=== PATIENT | male | born 1990 | race Caucasian/White ===

== ENCOUNTER 2019-08-09 07:54 | Inpatient (IN) | payer BC, SELFPAY ==
[2019-08-09] MEDS ORDERED: AZITHROMYCIN IVPB 500 MG in DEXTROSE 5%-WATER - 250 ML IVPB ONE (09:32)
[2019-08-09] MEDS ORDERED: SODIUM CHLORIDE 1,000 ML IV STA (09:32)
[2019-08-09] MEDS ORDERED: CEFTRIAXONE 1,000 MG in DEXTROSE 5%-WATER - 50 ML IVPB ONE (09:32)
[2019-08-09] MEDS ORDERED: cefTRIAXone SODIUM 1 GM VIAL ONE (10:01)
[2019-08-09] MEDS ORDERED: AZITHROMYCIN 500 MG VIAL IVPB ONE (10:01)
[2019-08-09 10:38] LABS: BASO % 0.1 % (0-2.0); EOS % 0.1 % (0-4.5); HEMATOCRIT 47.2 % (35.4-49); HEMOGLOBIN 15.6 GM/dl (11.7-16.9); LYMPH % 17.8 % (8-40); MCH 27.7 pg (25.7-33.7); MCHC 33.1 g/dl (32.0-35.9); MEAN CELL VOLUME 83.6 fl (80-96); MEAN PLT VOLUME 8.5 fl (7.5-11.1); MONO % 11.4 % (3.8-10.2); NEUT % 70.6 % (42.8-82.8); PLATELET COUNT 218 K/MM3 (134-434); RBC 5.64 M/mm3 (4.00-5.60); RDW 12.8 % (11.9-15.9); WHITE BLOOD COUNT 3.9 K/mm3 (4.0-10.8)
[2019-08-09 10:51] LABS: ALBUMIN 3.8 g/dl (3.4-5.0); BILIRUBIN,TOTAL 1.1 mg/dl (0.2-1); CALCIUM 8.2 mg/dl (8.5-10); POTASSIUM 3.6 mmol/L (3.5-5.1); TOT PROT 7.5 g/dl (6.4-8.2)
[2019-08-09] MEDS ORDERED: ATOMOXETINE HCL 40 MG PO SCH (12:00)
[2019-08-09 12:26] VITALS: BMI 33.4
[2019-08-09 13:05] LABS: ALBUMIN 3.8 g/dl (3.4-5.0); BILIRUBIN,DIRECT 0.2 mg/dL (0.0-0.2); BILIRUBIN,TOTAL 1.2 mg/dl (0.2-1); TOT PROT 7.6 g/dl (6.4-8.2)
[2019-08-09] MEDS: VENLAFAXINE HCL 37.5 MG E.R. CAPSULE PO SCH ×2 (13:57→20:40)
[2019-08-09] MEDS ORDERED: ACETAMINOPHEN 325 MG TABLET (FP) PO PRN (20:01)
[2019-08-09] MEDS: SODIUM CHLORIDE 1,000 ML IV SCH (20:40)
[2019-08-09] MEDS: BENZOCAINE/MENTH/CETYLPYRD CL 1 EACH LOZENGE MM PRN (22:00)
[2019-08-09] MEDS ORDERED: ACETAMINOPHEN 1000 MG/100 ML VIAL (NON FORMULARY) IVPB ONE (22:55)
[2019-08-10 06:49] LABS: BASO % 0.5 % (0-2.0); EOS % 0.7 % (0-4.5); HEMATOCRIT 38.5 % (35.4-49); HEMOGLOBIN 13.5 GM/dL (11.7-16.9); LYMPH % 19.1 % (8-40); MCH 28.6 pg (25.7-33.7); MCHC 35.1 g/dl (32.0-35.9); MEAN CELL VOLUME 81.4 fl (80-96); MEAN PLT VOLUME 8.8 fl (7.5-11.1); MONO % 6.9 % (3.8-10.2); NEUT % 72.8 % (42.8-82.8); PLATELET COUNT 194 K/MM3 (134-434); RBC 4.73 M/mm3 (4.00-5.60); RDW 14.5 % (11.9-15.9); WHITE BLOOD COUNT 5.2 K/mm3 (4.0-10.0)
[2019-08-10 07:01] LABS: INR 1.23 (0.83-1.09)
[2019-08-10 07:15] LABS: PROTHROMBIN TIME (PATIENT) 14.5 SEC (9.7-13.0)
[2019-08-10 07:31] LABS: BLOOD UREA NITROGEN 8.6 mg/dL (7-18); CHLORIDE 101 mmol/L (98-107); CREATININE 0.9 mg/dL (0.55-1.3); GLUCOSE,RANDOM 80 mg/dL (74-106); POTASSIUM 3.6 mmol/L (3.5-5.1); SODIUM 137 mmol/L (136-145)
[2019-08-10 07:32] LABS: CO2 30 mmol/L (21-32); MAGNESIUM 2.1 mg/dL (1.8-2.4); PHOSPHOROUS 3.2 mg/dL (2.5-4.9)
[2019-08-10 08:22] LABS: ALBUMIN 2.7 g/dl (3.4-5.0); ALK PHOS 55 U/L (45-117); BILIRUBIN,TOTAL 0.4 mg/dL (0.2-1); SGOT/AST 81 U/L (15-37); SGPT/ALT 72 U/L (13-61); TOT PROT 5.8 g/dl (6.4-8.2)
[2019-08-10] MEDS ORDERED: cefTRIAXone SODIUM 1 GM VIAL ONE (08:48)
[2019-08-10] MEDS ORDERED: PT OWN MED DRAWER 7, Y5N ONE (08:48)
[2019-08-10] MEDS ORDERED: DEXTROSE 5%-WATER - 50 ML IVPB ONE (08:49)
[2019-08-10] MEDS: VENLAFAXINE HCL 37.5 MG E.R. CAPSULE PO SCH ×2 (09:53→11:10)
[2019-08-10] MEDS: CEFTRIAXONE 1 GM in DEXTROSE 5%-WATER - 50 ML IVPB SCH (09:54)
[2019-08-10] MEDS: AZITHROMYCIN IVPB 250 MG in DEXTROSE 5%-WATER - 250 ML IVPB SCH (09:55)
[2019-08-10] MEDS: SODIUM CHLORIDE 1,000 ML IV SCH ×2 (09:55→15:11)
[2019-08-10] MEDS: ENOXAPARIN NA (PORCINE) 40 MG/0.4 ML DISP.SYRIN SQ SCH (09:55)
[2019-08-10] MEDS: ACETAMINOPHEN 1000 MG/100 ML VIAL (NON FORMULARY) IVPB PRN (20:00)
[2019-08-10] MEDS: BENZOCAINE/MENTH/CETYLPYRD CL 1 EACH LOZENGE MM PRN (21:41)
[2019-08-10] MEDS: guaiFENesin 200 MG/10 ML 10 ML UNIT-DOSE CUPS PO PRN (22:30)
[2019-08-11] MEDS: ACETAMINOPHEN 1000 MG/100 ML VIAL (NON FORMULARY) IVPB PRN ×2 (05:19→16:57)
[2019-08-11 06:34] LABS: BASO % 0.5 % (0-2.0); EOS % 0.2 % (0-4.5); HEMATOCRIT 35.5 % (35.4-49); HEMOGLOBIN 12.5 GM/dL (11.7-16.9); LYMPH % 11.7 % (8-40); MCH 28.5 pg (25.7-33.7); MCHC 35.3 g/dl (32.0-35.9); MEAN CELL VOLUME 80.6 fl (80-96); MEAN PLT VOLUME 8.4 fl (7.5-11.1); MONO % 4.7 % (3.8-10.2); NEUT % 82.9 % (42.8-82.8); PLATELET COUNT 247 K/MM3 (134-434); RBC 4.41 M/mm3 (4.00-5.60); RDW 14.5 % (11.9-15.9); WHITE BLOOD COUNT 6.7 K/mm3 (4.0-10.0)
[2019-08-11] MEDS ORDERED: PT OWN MED DRAWER 7, Y5N ONE ×2 (06:38→10:06)
[2019-08-11 07:03] LABS: ALBUMIN 2.6 g/dl (3.4-5.0); ALK PHOS 57 U/L (45-117); ANION GAP 8 MMOL/L (8-16); BILIRUBIN,TOTAL 0.6 mg/dL (0.2-1); BLOOD UREA NITROGEN 5.8 mg/dL (7-18); CALCIUM 7.5 mg/dL (8.5-10.1); CHLORIDE 100 mmol/L (98-107); CO2 28 mmol/L (21-32); CREATININE 0.6 mg/dL (0.55-1.3); GLUCOSE,RANDOM 84 mg/dL (74-106); MAGNESIUM 2.1 mg/dL (1.8-2.4); POTASSIUM 3.6 mmol/L (3.5-5.1); SGOT/AST 70 U/L (15-37); SGPT/ALT 59 U/L (13-61); SODIUM 137 mmol/L (136-145); TOT PROT 5.7 g/dl (6.4-8.2)
[2019-08-11] MEDS ORDERED: NAPH,MB-DB/K PH,MBDB POWDER PACKET PO ONE (09:00)
[2019-08-11] MEDS ORDERED: cefTRIAXone SODIUM 1 GM VIAL ONE (09:53)
[2019-08-11] MEDS ORDERED: DEXTROSE 5%-WATER - 50 ML IVPB ONE (09:53)
[2019-08-11] MEDS: ENOXAPARIN NA (PORCINE) 40 MG/0.4 ML DISP.SYRIN SQ SCH (10:00)
[2019-08-11] MEDS: guaiFENesin 200 MG/10 ML 10 ML UNIT-DOSE CUPS PO PRN ×2 (10:00→21:00)
[2019-08-11] MEDS: CEFTRIAXONE 1 GM in DEXTROSE 5%-WATER - 50 ML IVPB SCH (10:00)
[2019-08-11] MEDS: VENLAFAXINE HCL 37.5 MG E.R. CAPSULE PO SCH (10:01)
[2019-08-11] MEDS: AZITHROMYCIN IVPB 250 MG in DEXTROSE 5%-WATER - 250 ML IVPB SCH (10:52)
[2019-08-11] MEDS: SODIUM CHLORIDE 1,000 ML IV SCH ×2 (15:00→21:01)
[2019-08-11] MEDS ORDERED: HYDROXYCHLOROQUINE SO4 200 MG TABLET (FP) PO SCH (15:37)
[2019-08-11] MEDS ORDERED: POTASSIUM CHLORIDE TABS 20 MEQ TABLET.ER (FP) PO ONE (15:52)
[2019-08-11] MEDS: HYDROXYCHLOROQUINE SO4 200 MG TABLET (FP) PO SCH (21:00)
[2019-08-12] MEDS: SODIUM CHLORIDE 1,000 ML IV SCH ×2 (03:00→09:20)
[2019-08-12 06:11] LABS: BASO % 0.6 % (0-2.0); EOS % 0.8 % (0-4.5); HEMATOCRIT 36.6 % (35.4-49); HEMOGLOBIN 12.5 GM/dL (11.7-16.9); LYMPH % 17.3 % (8-40); MCHC 34.2 g/dl (32.0-35.9); MEAN PLT VOLUME 8.2 fl (7.5-11.1); MONO % 8.2 % (3.8-10.2); NEUT % 73.1 % (42.8-82.8); PLATELET COUNT 276 K/MM3 (134-434); RBC 4.46 M/mm3 (4.00-5.60); RDW 14.4 % (11.9-15.9)
[2019-08-12 07:00] LABS: ALBUMIN 2.4 g/dl (3.4-5.0); ALK PHOS 65 U/L (45-117); ANION GAP 7 MMOL/L (8-16); BILIRUBIN,TOTAL 0.6 mg/dL (0.2-1); BLOOD UREA NITROGEN 5.1 mg/dL (7-18); CALCIUM 7.7 mg/dL (8.5-10.1); CHLORIDE 103 mmol/L (98-107); CO2 30 mmol/L (21-32); CREATININE 0.6 mg/dL (0.55-1.3); GLUCOSE,RANDOM 83 mg/dL (74-106); MAGNESIUM 2.4 mg/dL (1.8-2.4); PHOSPHOROUS 3.1 mg/dL (2.5-4.9); POTASSIUM 3.6 mmol/L (3.5-5.1); SGOT/AST 95 U/L (15-37); SGPT/ALT 78 U/L (13-61); SODIUM 139 mmol/L (136-145); TOT PROT 5.6 g/dl (6.4-8.2)
[2019-08-12] MEDS ORDERED: PT OWN MED DRAWER 7, Y5N ONE ×2 (09:06→12:27)
[2019-08-12] MEDS ORDERED: cefTRIAXone SODIUM 1 GM VIAL ONE (09:06)
[2019-08-12] MEDS ORDERED: DEXTROSE 5%-WATER - 50 ML IVPB ONE (09:07)
[2019-08-12] MEDS: VENLAFAXINE HCL 37.5 MG E.R. CAPSULE PO SCH (09:10)
[2019-08-12] MEDS: ENOXAPARIN NA (PORCINE) 40 MG/0.4 ML DISP.SYRIN SQ SCH (09:11)
[2019-08-12] MEDS: CEFTRIAXONE 1 GM in DEXTROSE 5%-WATER - 50 ML IVPB SCH (09:11)
[2019-08-12] MEDS: HYDROXYCHLOROQUINE SO4 200 MG TABLET (FP) PO SCH ×2 (09:11→21:33)
[2019-08-12] MEDS: guaiFENesin 200 MG/10 ML 10 ML UNIT-DOSE CUPS PO PRN ×2 (09:12→21:33)
[2019-08-12] MEDS: AZITHROMYCIN IVPB 250 MG in DEXTROSE 5%-WATER - 250 ML IVPB SCH (12:28)
[2019-08-13] MEDS ORDERED: PT OWN MED DRAWER 7, Y5N ONE ×2 (09:08→09:55)
[2019-08-13] MEDS ORDERED: DEXTROSE 5%-WATER 100 ML IVPB ONE (09:57)
[2019-08-13] MEDS ORDERED: CEFTRIAXONE 2 GM in DEXTROSE 5%-WATER 100 ML IVPB SCH (10:00)
[2019-08-13] MEDS: VENLAFAXINE HCL 37.5 MG E.R. CAPSULE PO SCH (10:36)
[2019-08-13] MEDS: HYDROXYCHLOROQUINE SO4 200 MG TABLET (FP) PO SCH ×2 (10:37→21:26)
[2019-08-13] MEDS: ENOXAPARIN NA (PORCINE) 40 MG/0.4 ML DISP.SYRIN SQ SCH (10:37)
[2019-08-13] MEDS: AZITHROMYCIN IVPB 250 MG in DEXTROSE 5%-WATER - 250 ML IVPB SCH (10:39)
[2019-08-13] MEDS: guaiFENesin 200 MG/10 ML 10 ML UNIT-DOSE CUPS PO PRN ×2 (11:23→21:27)
[2019-08-13] MEDS ORDERED: BENZOCAINE/MENTH/CETYLPYRD CL 1 EACH LOZENGE MM PRN (15:39)
[2019-08-14 07:10] LABS: BASO % 0.4 % (0-2.0); EOS % 1.8 % (0-4.5); HEMATOCRIT 39.4 % (35.4-49); HEMOGLOBIN 13.8 GM/dL (11.7-16.9); LYMPH % 15.2 % (8-40); MCH 28.7 pg (25.7-33.7); MCHC 34.9 g/dl (32.0-35.9); MEAN CELL VOLUME 82.1 fl (80-96); MEAN PLT VOLUME 8.3 fl (7.5-11.1); NEUT % 68.6 % (42.8-82.8); PLATELET COUNT 417 K/MM3 (134-434); RDW 14.5 % (11.9-15.9); WHITE BLOOD COUNT 6.5 K/mm3 (4.0-10.0)
[2019-08-14 07:39] LABS: ALBUMIN 2.6 g/dl (3.4-5.0); ALK PHOS 88 U/L (45-117); ANION GAP 9 MMOL/L (8-16); BILIRUBIN,TOTAL 0.4 mg/dL (0.2-1); BLOOD UREA NITROGEN 6.3 mg/dL (7-18); CALCIUM 8.6 mg/dL (8.5-10.1); CHLORIDE 102 mmol/L (98-107); CO2 28 mmol/L (21-32); CREATININE 0.6 mg/dL (0.55-1.3); GLUCOSE,RANDOM 81 mg/dL (74-106); POTASSIUM 4.1 mmol/L (3.5-5.1); SGOT/AST 209 U/L (15-37); SGPT/ALT 247 U/L (13-61); SODIUM 139 mmol/L (136-145); TOT PROT 6.7 g/dl (6.4-8.2)
[2019-08-14] MEDS ORDERED: DEXTROSE 5%-WATER 100 ML IVPB ONE (08:01)
[2019-08-14] MEDS: HYDROXYCHLOROQUINE SO4 200 MG TABLET (FP) PO SCH (09:48)
[2019-08-14] MEDS: ENOXAPARIN NA (PORCINE) 40 MG/0.4 ML DISP.SYRIN SQ SCH (09:48)
[2019-08-14] MEDS ORDERED: CEFTRIAXONE 2 GM in DEXTROSE 5%-WATER 100 ML IVPB SCH (10:00)
[2019-08-14 10:07] LABS: ANISOCYTOSIS 0; MACROCYTOSIS 0; PLATELET ESTIMATE NORMAL
[2019-08-14] MEDS: VENLAFAXINE HCL 37.5 MG E.R. CAPSULE PO SCH (11:44)
[2019-08-14] MEDS: guaiFENesin 200 MG/10 ML 10 ML UNIT-DOSE CUPS PO PRN (21:33)
[2019-08-15 08:17] LABS: ALBUMIN 2.7 g/dl (3.4-5.0); BILIRUBIN,TOTAL 0.4 mg/dL (0.2-1); BLOOD UREA NITROGEN 7.8 mg/dL (7-18); CALCIUM 8.5 mg/dL (8.5-10.1); CREATININE 0.7 mg/dL (0.55-1.3); TOT PROT 6.7 g/dl (6.4-8.2)
[2019-08-15] MEDS ORDERED: PT OWN MED DRAWER 7, Y5N ONE (09:16)
[2019-08-15] MEDS: ENOXAPARIN NA (PORCINE) 40 MG/0.4 ML DISP.SYRIN SQ SCH (09:52)
[2019-08-15] MEDS: VENLAFAXINE HCL 37.5 MG E.R. CAPSULE PO SCH (09:52)
[2019-08-16 06:18] VITALS: BP 124/76; TEMP 98
[2019-08-16 08:02] LABS: BLOOD UREA NITROGEN 9.8 mg/dL (7-18); CREATININE 0.8 mg/dL (0.55-1.3)
[2019-08-16 08:03] LABS: ALBUMIN 2.8 g/dl (3.4-5.0); BILIRUBIN,TOTAL 0.4 mg/dL (0.2-1); CALCIUM 8.8 mg/dL (8.5-10.1)
[2019-08-16 08:42] VITALS: PULSE 107
[2019-08-16] MEDS ORDERED: PT OWN MED DRAWER 7, Y5N ONE (09:20)
[2019-08-16] MEDS: VENLAFAXINE HCL 37.5 MG E.R. CAPSULE PO SCH (09:31)
[2019-08-16] MEDS: ENOXAPARIN NA (PORCINE) 40 MG/0.4 ML DISP.SYRIN SQ SCH (09:32)
== END 2019-08-16 14:00 | disposition home or self-care (01) | DRG 871 ==
LOC: FER 07:54 → FM/S 11:41 → JICU 15:36 → J4W 08-13 16:00
PROVIDERS: ADMIT Internal Medicine; ATTEND Internal Medicine
PROC: 8E0ZXY6 Isolation (ICD-10-PCS; principal; 2019-08-09)
DX: A41.9 Sepsis, unspecified organism (principal); J96.91 Respiratory failure, unspecified with hypoxia; J12.89 Other viral pneumonia; B97.29 Other coronavirus as the cause of diseases classified elsewhere; D72.819 Decreased white blood cell count, unspecified; E66.9 Obesity, unspecified; F41.9 Anxiety disorder, unspecified; Z68.33 Body mass index [BMI] 33.0-33.9, adult; F90.1 Attention-deficit hyperactivity disorder, predominantly hyperactive type; R79.89 Other specified abnormal findings of blood chemistry
CPT/HCPCS: 36415; 71045-TC-FY; 80048; 80053; 80076; 82550; 82553; 82728; 83520; 83605; 83735; 84100; 84484; 85025; 85610; 85651; 85730; 86140; 87040; 87086; 87633; 87798; 87804; 87807; 87899; 93005; 93010; 94761; 99285-25; J0131; U0002